=== PATIENT | female | born 1985 | race Caucasian/White ===

== ENCOUNTER 2018-02-14 20:19 | Emergency (ER) | payer OTHER ==
--- NOTE | 2018-02-14 20:56 | EDPHY ---
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 She reports receiving a stressful email from work and becoming very angry and then about 30 min later developed a right-sided frontal headache and some spots in her vision. She states that the words in her central visual area kind of disappeared when she was trying to read but she could see in the peripheral aspect. This resolved after about half an hour when she went on a walk but about 10 min after they resolve she developed paresthesias to the left side of her face arm and hand. It did not involve her leg. No weakness. She continued have a very slight headache. She does have a history of migraines but has never had paresthesias associated with them. No trauma. No fever or recent illness. Her symptoms resolved after about 30 more minutes and she is now asymptomatic. She did not have any palpitations or dizziness. Severity: Resolved Modifying factors: Time REVIEW OF SYSTEMS: Constitutional: denies: chills, fever, recent illness, recent injury EENTM: denies: blurred vision, double vision, nose congestion Respiratory: denies: cough, shortness of breath Cardiac: denies: chest pain, irregular heart rate, lightheadedness, palpitations Gastrointestinal/Abdominal: denies: abdominal pain, diarrhea, nausea, vomiting, blood streaked stools Genitourinary: denies: dysuria, frequency, hematuria, pain Musculoskeletal: denies: joint pain, muscle pain Skin: denies: lesions, rash, jaundice, bruising Neurological: See HPI Hematologic/Lymphatic: denies: blood clots, easy bleeding, easy bruising Immunologic/allergic: denies: HIV/AIDS, transplant 10 systems reviewed and negative except as noted EXAM: GENERAL: Well-appearing, well-nourished and in no acute distress. HEAD: Atraumatic, normocephalic. EYES: Pupils equal round and reactive to light, extraocular movements intact, sclera anicteric, conjunctiva are normal. ENT: TMs normal, nares patent, oropharynx clear without exudates. Moist mucous membranes. NECK: Normal range of motion, supple without lymphadenopathy or JVD. LUNGS: Breath sounds clear to auscultation bilaterally and equal. No wheezes rales or rhonchi. HEART: Regular rate and rhythm without murmurs, rubs or gallops. ABDOMEN: Soft, nontender, normoactive bowel sounds. No guarding, no rebound. No masses appreciated. BACK: No CVA tenderness, no spinal tenderness, step-offs or deformities EXTREMITIES: Normal range of motion, no pitting or edema. No clubbing or cyanosis. NEUROLOGICAL: Cranial nerves II through XII grossly intact. Normal speech, normal gait. 5/5 strength, normal movement in all extremities, normal sensation , normal reflexes. NIH stroke score 0. PSYCH: Normal mood, normal affect. SKIN: Warm, dry, normal turgor, no visible rashes or lesions. Source: Patient Exam Limitations: No limitations - Personal History LMP (Females 10-55): 8-14 Days Ago Current Tetanus Diphtheria and Acellular Pertussis (TDAP): Yes - Medical/Surgical History Hx Asthma: No Hx Chronic Respiratory Disease: No Hx Diabetes: No Hx Cardiac Disease: No Hx Renal Disease: No Hx Cirrhosis: No Hx Alcoholism: No Hx HIV/AIDS: No Hx Splenectomy or Spleen Trauma: No Other PMH: Anxiety, migraines - Family History Significant Family History: No pertinent family hx - Social History Smoking Status: Never smoked Alcohol Use: None Constitutional: Initial Vital Signs Heart Rate 93 02/14/18 20:27 Respiratory Rate 19 02/14/18 20:27 Blood Pressure 146/97 H 02/14/18 20:27 O2 Sat (%) 95 02/14/18 20:27 O2 Delivery Mode Room Air Allergies/Adverse Reactions: ibuprofen [Ibuprofen] Allergy (Intermediate, Verified 03/27/10 16:04) SNEEZING, ITCHY EYES NSAIDS (Non-Steroidal Anti-Inflamma Allergy (Verified 02/14/18 20:30) Home Medications: Medication Instructions Recorded Rach Mina 03/27/10 Medical Decision Making - Diagnostics EKG Interpretation: An EKG obtained and was read and documented in trace view. Please see trace view for full reading and report. Sinus rhythm, no acute ischemic changes ED Course/Re-evaluation: The patient declines medications. We had a long discussion about the workup. She consents to lab work and EKG but is declining MRI. I agree that this is reasonable since her symptoms have resolved and we would not see a migraine or TIA on MRI. I feel it is unlikely that this is a hemorrhage or dissection or mass or CVA or infection but she understands that that is a possibility. 10:00 p.m. the patient is feeling completely better. We had further discussion with her . She is going to continue to declined imaging at this time. We discussed follow-up with Neurology. Most likely this is a atypical migraine. Patient understands the limitations and that no definitive diagnosis is made. We discussed indications for returning in detail. She continues to decline medication or prescriptions. Differential Diagnosis: Partial list of the Differential diagnosis considered include but were not limited to; atypical migraine, anxiety and although unlikely based on the history and physical exam, I also considered TIA, dissection, tumor, the hemorrhage, CVA. I discussed these differential diagnoses and the plan with the patient as well as the usual and expected course. The patient understands that the diagnosis is provisional and that in medicine we are not always correct and that further workup is often warranted. Usual and customary warnings were given. All of the patient's questions were answered. The patient was instructed to return to the emergency department should the symptoms at all worsen or return, otherwise to followup with the physician as we discussed. - Data Points Laboratory Results: Laboratory Results 02/14/18 21:02 02/14/18 21:02 Departure - Departure Disposition: Home, Routine, Self-Care Clinical Impression: Atypical migraine Condition: Fair Instructions: Migraine Headache (ED) Referrals: Maurice Allen MD [Primary Care Provider] - As per Instructions Jamel Davis DO [Doctor of Osteopathy] - 5-7 days, call for appt.
[2018-02-14 21:22] LABS: PLATELET COUNT 311 10^3/uL (150-400)
--- NOTE | 2018-02-14 21:47 | CPEKG ---
Test Reason : OPEN Blood Pressure : / mmHG Vent. Rate : 085 BPM Atrial Rate : 085 BPM P-R Int : 163 ms QRS Dur : 106 ms QT Int : 379 ms P-R-T Axes : 073 080 026 degrees QTc Int : 451 ms Sinus rhythm Probable left atrial enlargement Confirmed by Jamel Martinez ([id number]) on 02/14/2018 9:47:04 PM Referred By: Confirmed By:Jamel Martinez
[2018-02-14 22:14] VITALS: BP 117/70
== END 2018-02-14 22:13 | disposition home or self-care (01) ==
DX: G43.809 Other migraine, not intractable, without status migrainosus (principal)